=== PATIENT | female | born 1940 | race Caucasian/White ===

== ENCOUNTER 2016-11-19 19:54 | Emergency (ER) | payer BC ==
[2016-11-19 21:09] VITALS: BP 136/57
--- NOTE | 2016-11-19 22:15 | RAD ---
INDICATION: Nosebleed after a fall. COMPARISON: None. TECHNIQUE: Contiguous axial sections of the brain were obtained from the skull base to the vertex without contrast. FINDINGS: The ventricles, cisterns and sulci exhibit mild symmetric involutional changes. There is periventricular and subcortical white matter hypoattenuation, with more focal areas in the bilateral frontal lobe white matter tracts, most consistent with chronic microvascular disease. The keith-white matter differentiation is adequately maintained and there is no sulcal effacement. No significant focal abnormality or mass effect is present. There is no evidence for intracranial hemorrhage. No significant focal osseous abnormality is present. There are frothy secretions creating an air-fluid level in the left sphenoid sinus. There is mild mucosal thickening of the bilateral ethmoid air cells. The remaining visualized paranasal sinuses are well aerated. The frontal sinuses are hypoplastic. The mastoid air cells appear clear. IMPRESSION: CT findings are consistent with chronic microvascular disease, mild involutional changes and mild paranasal sinus mucosal disease without evidence of acute traumatic intracranial injury.
[2016-11-19 22:33] LABS: Hematocrit 33 % (35-47); Hemoglobin 11.2 g/dl (12.0-16.0); Mean Corpuscular HGB Conc 34 g/dl (31-36); Mean Corpuscular Hemoglobin 30 pg (27-31); Mean Corpuscular Volume 89 fL (80-97); Mean Platelet Volume 8 um3 (7.4-10.4); Red Blood Count 3.71 10^6/ul (4.0-5.4); Red Cell Distribution Width 13 % (10.5-15); White Blood Count 8.1 10^3/ul (3.5-10.8)
[2016-11-19 22:38] LABS: Calcium 9.1 mg/dL (8.6-10.3); EGFR African American 130.7 (>60); EGFR Non-African American 101.6 (>60); Globulin 2.7 g/dL (2-4); Potassium 3.3 mmol/L (3.5-5.0); Total Bilirubin 0.3 mg/dL (0.2-1.0); Total Protein 6.7 g/dL (6.4-8.9)
[2016-11-19] MEDS ORDERED: NS 0.9% 1000 ML* 1,000 ML IV ONE (22:42)
[2016-11-19] MEDS ORDERED: Potassium Chlor TAB* 20 MEQ TAB.ER PO ONE (22:42)
--- NOTE | 2016-11-20 03:22 | ED ---
Dipak Aviles Anna, scribed for Gerard Lund on 11/19/16 at 2042 . Adult Trauma - HPI Summary HPI Summary: Patient is a 76 y/o female coming to [facility] following the sudden onset of a fall that occurred this evening at home. The patient slipped on a wet spot in the kitchen. She denies LOC. She landed on her face. She was on the phone with her daughter when she fell. When her found her, she was standing, resting one hand on the kitchen island, and there was a pool of blood on the floor from an epistaxis. The patient currently has left-sided rib pain of severity 3/10, a bump forming on her head, and an epistaxis. Denies weakness, numbness. Denies history of seizures. She does not use blood thinners. 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 - Accompanied by Mechanism of Injury: Fall - from standing height Ambulatory at the Scene: Yes Loss of Consciousness: no loss of consciousness Onset/Duration: Started Hours Ago Onset of Pain: Immediate Onset Severity: Moderate Current Severity: Moderate Pain Intensity: 3 Pain Scale Used: 0-10 Numeric - Allergy/Home Medications Allergies/Adverse Reactions: Allergies Allergy/AdvReac Type Severity Reaction Status Date / Time Pollen Extract Allergy See Comment Verified 11/19/16 21:05 PMH/Surg Hx/FS Hx/Imm Hx Endocrine/Hematology History: Reports: Hx Anemia Cardiovascular History: Reports: Hx Hypercholesterolemia, Hx Hypotension GI History: Reports: Hx Diverticulosis, Hx Gastroesophageal Reflux Disease - Cancer History Hx Chemotherapy: No Hx Radiation Therapy: Yes - FINISHED 05/2012 - Surgical History Surgery Procedure, Year, and Place: Cholecystectomy. 2010 LEFT BREAST LUMPECTOMY. - Immunization History Date of Influenza Vaccine: 04/2013 Infectious Disease History: Denies: Traveled Outside the [place] in Last 30 Days - Family History Known Family History: Positive: Cardiac Disease - Hx in mother - Social History Occupation: Retired Lives: With Family Alcohol Use: Rare Hx Substance Use: No Substance Use Type: Reports: None Hx Tobacco Use: Yes Smoking Status (MU): Former Smoker Review of Systems Positive: Epistaxis Positive: Arthralgia - left-sided rib pain Skin: Other - bump forming on head Negative: Syncope All Other Systems Reviewed And Are Negative: Yes Physical Exam Triage Information Reviewed: Yes Vital Signs On Initial Exam: Initial Vitals Temp Pulse Resp BP Pulse Ox 99 F 80 18 133/104 100 11/19/16 20:10 11/19/16 20:10 11/19/16 20:10 11/19/16 20:10 11/19/16 20:10 Vital Signs Reviewed: Yes Appearance: Positive: Well-Appearing, No Pain Distress Skin: Positive: Warm, Skin Color Reflects Adequate Perfusion Head/Face: Positive: Normal Head/Face Inspection Eyes: Positive: EOMI, LUCIE ENT: Positive: Normal ENT inspection Neck: Positive: Supple, Nontender Respiratory/Lung Sounds: Positive: Clear to Auscultation, Breath Sounds Present Cardiovascular: Positive: RRR, Pulses are Symmetrical in both Upper and Lower Extremities Abdomen Description: Positive: Nontender, Soft Bowel Sounds: Positive: Present Musculoskeletal: Positive: Normal, Strength/ROM Intact Neurological: Positive: Normal, Sensory/Motor Intact, Alert, Oriented to Person Place, Time Diagnostics - Vital Signs Vital Signs Temp Pulse Resp BP Pulse Ox 11/19/16 20:10 99 F 80 18 133/104 100 - Laboratory Result Diagrams: 11/19/16 22:10 11/19/16 22:10 Lab Statement: Any lab studies that have been ordered have been reviewed, and results considered in the medical decision making process. - CT Brain Ct CT Interpretation: No Acute Changes CT Interpretation Completed By: Radiologist - IMPRESSION: CT findings are consistent with chronic microvascular disease, mild involutional changes and mild paranasal sinus mucosal disease without evidence of acute traumatic intracranial injury. - EKG 2149 Cardiac Rate: NL - 79 bpm EKG Rhythm: Sinus Rhythm ST Segment: Normal Ectopy: None EKG Interpretation: No acute changes Re-Evaluation - Re-Evaluation First Eval Re-Evaluation Time: 22:47 Comment: Discussed results and plan of care with patient and family. Patient and family are agreeable with plan. Adult Trauma Course/Dx - Course Assessment/Plan: Pt slipped, fell, hit head. Pt came with head injury. CT negative. Lab shows hyponatremia, hypokalemia. Pt does not want IV fluids and admission. Wants to follow up as outpatient in case of salt intake at home and f /u with PCP in three days for repeat sodium level. Pt understood and will be d/ c home with dx head injury, hyponatremia, hypokalemia. - Diagnoses Provider Diagnoses: Head injury, Hypokalemia, Hyponatremia Discharge - Discharge Plan Condition: Stable Disposition: HOME Patient Education Materials: Head Injury (ED), Hyponatremia (ED), Hypokalemia ( ED) Referrals: Brigitte Banks MD [Primary Care Provider] - Additional Instructions: Increase salt intake as was discussed. Follow up with your primary care provider within 72 hours. Return to the Emergency Department for new or worsening symptoms. The documentation as recorded by the Dipak guzman Anna accurately reflects the service I personally performed and the decisions made by Kevon carroll Emmanuel.
== END 2016-11-19 23:00 | disposition home or self-care (01) ==
LOC: ED 19:54
DX: S09.90XA Unspecified injury of head, initial encounter (principal); E87.6 Hypokalemia; E87.1 Hypo-osmolality and hyponatremia; W01.0XXA Fall on same level from slipping, tripping and stumbling without subsequent striking against object, initial encounter; Y92.000 Kitchen of unspecified non-institutional (private) residence as the place of occurrence of the external cause; E78.00 Pure hypercholesterolemia, unspecified; K21.9 Gastro-esophageal reflux disease without esophagitis; Z87.891 Personal history of nicotine dependence
CPT/HCPCS: 36415; 70450; 80053; 84484; 85025; 85610; 85730; 93005; 99283